=== PATIENT | female | born 1970 | race African-American/Black ===

== ENCOUNTER → 2016-03-03 | Outpatient (CLI) | payer OTHER ==
[2016-02-12 18:15] VITALS: BP 116/78
[~2016-03-03] MED LIST: BUTA1CAP29 PO; CYCL10TA2 PO; HYDR-971 PO; IBUP-1060 PO; ONDA4TAB10 SL; SUMA100T3 PO
--- NOTE | 2016-03-03 17:06 | KCIC ---
Bilateral digital screening mammograms with CAD: HISTORY Routine screening. COMPARISON Baseline screening. FINDINGS Breast density category B. The skin and nipples show no abnormalities. No abnormal lymph nodes are seen in the axilla. The breast parenchyma shows scattered fibroglandular density. There are no dominant masses, suspicious calcifications or architectural distortions. IMPRESSION No evidence of malignancy. Recommend routine annual mammographic screening. This study was interpreted with the benefit of Computerized Aided Detection (CAD). Mammography is not 100% sensitive in detecting breast cancer. Therefore, a self breast exam and a clinical breast exam are very important. A negative mammogram does not negate a clinically suspicious finding and should not result in a delay in biopsying a clinically suspicious abnormality. BI-RADS category 1. Negative. This patient's information has been entered into a reminder system for the patient to be notified with the results of this examination and a target date for her next mammograms. Electronically signed by: Cristela Fernando MD (Mar 03, 2016 17:05:06)
== END | disposition home or self-care (01) ==
LOC: KCIC MAMMO 11:06
PROVIDERS: ATTEND Nurse Practitioner Women's Health
DX: Z12.31 Encounter for screening mammogram for malignant neoplasm of breast (principal)
CPT/HCPCS: 77052; G0202

== ENCOUNTER 2017-03-10 20:59 | Emergency (ER) | payer OTHER ==
[2017-03-10] MEDS: oxyCODONE/APAP 10/325 1 TAB TABLET PO (21:50)
== END 2017-03-10 21:57 | disposition home or self-care (01) ==
LOC: ER 20:59
DX: M54.16 Radiculopathy, lumbar region (principal); Z98.51 Tubal ligation status; G89.29 Other chronic pain
CPT/HCPCS: 99282